=== PATIENT | female | born 1975 | race Caucasian/White ===

== ENCOUNTER 2017-01-15 01:23 | Emergency (ER) | payer SELFPAY ==
[~2017-01-15] VITALS: Ht 165.1 cm; Wt 68.0 kg
[2017-01-15 01:29] VITALS: BP 107/63; PULSE 105; RESP 18; TEMP 98.7; O2SAT 98
[2017-01-15 02:41] VITALS: BP 105/68; PULSE 108; RESP 18; O2SAT 97
--- NOTE | 2017-01-15 02:46 | PD ---
HPI Chief Complaint: Pain: Acute or Chronic Time Seen by Provider: 02:43 Travel History International Travel<30 days: No Contact w/Intl Traveler<30days: No Traveled to known affect area: No History of Present Illness HPI The patient is a 41-year-old female with a history of IV drug abuse who also has a history of chronic low back pain and she called the ambulance tonight because of her low back pain. She lives [address] from [facility] but, according to [facility] personnel, she knows they no longer give Dilaudid at [facility] and so she does not want to go there. The patient states the pain hurts in the low back and does not radiate. She states there is no possibility of . She denies any bladder or bowel dysfunction. The patient denies any fevers. 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. She denies any weight loss. PFSH Past Medical History Arthritis: Yes Anxiety: Yes Depression: No Cancer: No Cardiovascular Problems: Yes (Endocarditis) Diminished Hearing: No Gastrointestinal Disorders: No Genitourinary: No Immune Disorder: No Implanted Vascular Access Dvce: Yes (RUE PICC LINE) Musculoskeletal: Yes (Chronic pain) Neurologic: No Psychiatric: Yes (IVDA) Reproductive: No Respiratory: No Immunizations Current: Yes Thyroid Disease: Yes Tetanus Vaccination: < 5 Years Influenza Vaccination: No ?: Not LMP: 2 WEEKS AGO : 2 Para: 1 : 1 Past Surgical History Appendectomy: Yes Section: Yes Gynecologic Surgery: Yes Social History Alcohol Use: Yes (Denies today) Tobacco Use: Yes (11/24 PPD) Substance Use: Yes (Injects Dilaudid and meth) Allergies-Medications (Allergen,Severity, Reaction): Coded Allergies: Flagyl (Verified Allergy, Mild, Hives, 01/15/17) *MDRO Multi-Drug Resistant Organism (Verified Adverse Reaction, Unknown, ESBL, MRSA, 01/15/17) MRSA (blood) - 07/2016 ESBL- (Urine 07/2016 & 09/24/16) Reported Meds & Prescriptions Reported Meds & Active Scripts Active No Active Prescriptions or Reported Medications Review of Systems Except as stated in HPI: all other systems reviewed are Neg Physical Exam Narrative GENERAL: Well-nourished, well-developed patient who screams when I touch her back. The patient's vital signs show heart rate of 105 but are otherwise normal. SKIN: Warm and dry. Recent needle tracks are present on both antecubital fossa. There are no infected needle tracks present. HEAD: Normocephalic. EYES: No scleral icterus. No injection or drainage. NECK: Supple, trachea midline. No JVD or lymphadenopathy. CARDIOVASCULAR: Regular rate and rhythm without murmurs, gallops, or rubs. RESPIRATORY: Breath sounds equal bilaterally. No accessory muscle use. GASTROINTESTINAL: Abdomen soft, non-tender, nondistended. MUSCULOSKELETAL: No cyanosis, or edema. She has tenderness on the lumbosacral area midline and diffusely, no deformity is noted. Straight leg raising is normal, deep tendon reflexes are +2 by both patella Achilles and pinprick is normal. BACK: Nontender without obvious deformity. No CVA tenderness. Data Data Last Documented VS Vital Signs Date Time Temp Pulse Resp B/P Pulse Ox O2 Delivery O2 Flow Rate FiO2 01/15/17 03:40 105 18 105/68 95 Room Air 01/15/17 01:29 98.7 Orders Ketorolac Inj (Toradol Inj) (01/15/17 03:00) Orphenadrine Inj (Norflex Inj) (01/15/17 03:00) MDM Medical Decision Making Medical Screen Exam Complete: Yes Emergency Medical Condition: Yes Medical Record Reviewed: Yes Differential Diagnosis Acute lumbosacral strain, drug seeking behavior, herniated nucleus pulposus Narrative Course The patient appears to have an acute lumbosacral strain. She will be given Toradol and Norflex here. Diagnosis Primary Impression: Back pain Additional Instructions: Follow-up with a primary care physician. You live [place] to [facility] in [facility]. You need to discontinue IV drugs. Med/Other Pt SpecificInfo: Prescription(s) given Scripts Methocarbamol (Robaxin)750 Mg [id number] Mg PO QID #45 TAB Ref 0 Prov:Adriel Burton MD 01/15/17 Ibuprofen 600 Mg [id number] Mg PO TID #45 TAB Ref 0 Prov:Adriel Burton MD 01/15/17 Disposition: 01 DISCHARGE HOME Condition: Stable Adriel Burton MD Jan 15, 2017 02:46
[2017-01-15] MEDS ORDERED: ORPHENADRINE INJ 60 MG/2 ML AMP IM ONE (03:00)
[2017-01-15] MEDS ORDERED: KETOROLAC TROMETHAMINE 60 MG/2 ML (IM) VIAL IM ONE (03:00)
[2017-01-15 03:40] VITALS: BP 105/68; PULSE 105; RESP 18; O2SAT 95
[2017-01-15] MEDS ORDERED: ROBA750T PO (03:51)
[2017-01-15] MEDS ORDERED: IBUP-232 PO (03:51)
== END 2017-01-15 04:30 | disposition home or self-care (01) ==
LOC: PHED 01:23
DX: M54.5 Low back pain (principal); G89.29 Other chronic pain
CPT/HCPCS: 96372; 99283; J1885; J2360